=== PATIENT | male | born 1990 | race Caucasian/White ===

== ENCOUNTER → 2020-04-10 | Outpatient (CLI) | payer BC ==
--- NOTE | 2020-04-12 13:02 | RAD ---
XR TOES 2 OR MORE VIEWS HISTORY: 29 years Male PAIN IN FOURTH TOE COMPARISON: None. TECHNIQUE: 3 views of the right toes. FINDINGS: Normal mineralization. No fracture or dislocation. No arthritic change. Joint spaces maintained. No diagnostic soft tissue abnormality. IMPRESSION: Unremarkable radiographs of the right toes. Electronically signed by: Armando Gordon MD 04/12/2020 1:00 PM [facility]
== END ==
LOC: YCFC.O 16:59
PROVIDERS: ATTEND Nurse Practitioner Family
DX: M79.674 Pain in right toe(s) (principal)